=== PATIENT | female | born 1975 | race Caucasian/White ===

== ENCOUNTER 2016-11-02 18:44 | Emergency (ER) | payer OTHER ==
[~2016-11-02] VITALS: Ht 162.6 cm; Wt 102.3 kg
[~2016-11-02 18:44] MED LIST: ASCO250T7 PO; CHOL500014 PO; GABA-502 PO; HYDR-3091 PO; LEVO100T45 PO; MAGN500C4 PO; MELA1TAB16 PO; METO-274 PO; NORT25CA PO; OMEP-113 PO; POLY17PO6 PO; SUMA100T2 PO
[2016-11-02 19:29] VITALS: BP 184/108; PULSE 92; RESP 15; O2SAT 98
[2016-11-02 20:11] LABS: BASOPHILS % (AUTO) 0.5 % (0-3); EOSINOPHILS % (AUTO) 5.2 % (0-5); MONOCYTES % (AUTO) 5.6 % (4-12); Mean Corpuscular Hemoglobin 31.7 pg (27.0-35.0); Mean Corpuscular Volume 94.2 fL (81-100); NEUTROPHILS % (AUTO) 50.5 % (40-74); Platelet Count 293 bil/L (150-400)
--- NOTE | 2016-11-02 21:43 | ED.REPORT ---
HPI-Abd Pain F 40 and Over Date of Service Nov 02, 2016 ED Provider: Shoaib Oh DO Ms. Meyers is a 41 y/o woman with history of recurrent kidney stones who presents today for gross hematuria with associated right sided back cramping that started 9-10 hours ago. It has gradually been getting worse. She also has nausea. She does not have dysuria, urinary frequency, urinary urgency, or abdominal pain. Nothing makes it better or worse. She tried drinking more water but it has not helped. Her last period was 3 weeks ago and she had a uterine ablation so she usually only spots for 1-3 days. She had kidney stones in the past but never had gross hematuria. She has had to have laser lithotripsy in the past for a kidney stone. She had 5 days of gross hematuria prior to [place] at which point she had a renal ultrasound done that showed a renal calculi. She also had a CT KUB done 4 days ago that showed bilateral non- obstructive nephrolithiasis. Nursing Notes Stated Complaint: KIDNEY STONE/ BLOOD IN URINE Chief Complaint: Female Abdominal Pain Nursing Notes Reviewed: Yes Allergies: Coded Allergies: celecoxib (Verified Allergy, Severe, PALPITATIONS, 11/02/16) Uncoded Allergies: TOPRAMAX (Adverse Reaction, Intermediate, SLEEPY, 11/02/16) Scheduled Ascorbic Acid (Vitamin C) 250 Mg Tab.chew 250 MG PO DAILY Cholecalciferol (Vitamin D3) (Vitamin D) 5,000 Unit Tablet 5,000 UNIT PO DAILY Gabapentin (Gabapentin) 300 Mg Capsule 300 MG PO TID Levothyroxine (Levoxyl) 100 Mcg Tablet 100 MCG PO DAILY Magnesium Oxide (Magnesium) 500 Mg Capsule 500 MG PO DAILY Melatonin/Pyridoxine (Melatonin 5 mg Tablet) 1 Each Tablet 1 EACH PO DAILY Metoprolol Succinate ER (Metoprolol Succinate ER) 100 Mg Tab.er.24h 150 MG PO DAILY Nortriptyline (Nortriptyline) 25 Mg Capsule 25 MG PO HS Omeprazole Magnesium (Omeprazole) 20 Mg Capsule.dr 20 MG PO BID Polyethylene Glycol 3350 (Miralax) 17 Gm Powd.pack 17 GM PO DAILY Scheduled PRN Hydrocodone-Acetaminophen 7.5-300 mg (Hydrocodone-Acetaminophen 7.5-300 mg) 1 Each Tablet 1 EACH PO Q4 PRN PRN For Pain Sumatriptan Succinate (Sumatriptan Succinate) 100 Mg Tablet 100 MG PO PRN For Headache General Time Seen by MD: 21:20 Chief Complaint Flank pain right Hx Obtained From: Patient Arrived By: Walk-in Sudden in Onset?: Yes Onset Occurred: 9 - 12 hours ago Symptom Duration: Constant Progression since Onset: Gradually worsening Severity: Current: Moderate Associated with: Reports: Back pain, Chills, Fever (subjective), Hematuria, Nausea, Denies: Dysuria, Urinary frequency, Urinary retention, Vaginal bleeding, Vomiting Status: Negative - ED urine HCG Pertinent Negative: Exacerbated by nothing, Relieved by nothing Context Related History: Reports: Ureterolithiasis Recent Healthcare: Recent testing (CT KUB) Similar Sx Previous: Yes Past Medical History Past Medical History fibromyalgia, recurrent kidney stones, hypothyroidism, HTN Past Surgical History laser lithotripsy for kidney stone Reports: Cholecystectomy Smoking History Never Smoker Social History Alcohol Use: Denies alcohol use Drug Use: Denies drug use Ambulatory Status Independent Review of Systems Basic Review of Systems Eyes: Vision NL, No discharge ENT: Hearing NL, No pain, No nasal congestion, No pharyngeal pain Hematologic: No bruising Endocrine: No cold intolerance, No heat intolerance, No weight gain, No weight loss Skin: No bruising, No rash, No itch Neurologic: NL mental status, No weakness, No numbness Psychiatric: Normal thought content Constitutional: Reports: Chills, Fever GI: Reports: Nausea, Denies: Abdominal pain, Constipation, Diarrhea, Vomiting Female: Reports: Flank pain, Hematuria, Denies: Dysuria, Pelvic pain, Urinary frequency, Urinary urgency, Urination decreased, Urination increased, Vaginal bleeding - abnl Musculoskeletal: Reports: Back pain, Denies: Extremity pain, Joint pain, Lumbar pain, Neck pain, Thoracic pain Physical Exam Vital Signs Vital Signs (First) Date Time Temp Pulse Resp B/P Pulse Ox O2 Delivery O2 Flow Rate FiO2 11/02/16 19:29 36.3 92 15 184/108 98 Room Air Initial VS: Reviewed, Vital signs abnormal Neck: Supple, Non-tender, Full range of motion Lymphatic: No lymphadenopathy Extremities: Vascular intact, Neuro intact, No swelling, No tenderness Skin: Warm, Dry, No cyanosis Neurologic: Alert, Oriented, Nonfocal Psychiatric: Mood/affect normal, Behavior normal, Normal thought content General/Constitutional: Awake, Alert, Well developed Distress / Hydration: Positive: Distress mild Respiratory / Chest: Atraumatic, Breath sounds NL, Breath sounds = bilat, No rales, No rhonchi, No wheezing Cardiovascular: Heart rate NL, Regular rhythm, Heart sounds NL, No gallop, No murmurs, No rubs Abdomen: Atraumatic, Soft, No guarding, No rebound, BS normoactive, No distention, No pulsatile mass Tenderness/Guarding/Rebound: Positive: Tender flank R (positive CVA tenderness) , Tender periumbilical, Tender suprapubic Back: Atraumatic, Inspection NL Interpretation & Diagnostics Interpretation & Diagnostics: CT KUB on 10/29/2016 IMPRESSION: 1. Nonobstructive bilateral nephrolithiasis. No hydronephrosis, ureterolithiasis, hydroureter, or bladder calculi. No findings to explain hematuria. Dictated by: Haydee Fountain M.D. on 10/29/2016 at 13:55 Approved by: Haydee Fountain M.D. on 10/29/2016 at 13:55 Lab Results Interpretation Result Diagram: 11/02/16 2001 11/02/16 2001 Test 11/02/16 20:01 11/02/16 20:30 11/02/16 21:40 White Blood Count 10.6th/mm3 (3.8-10.1) Red Blood Count 4.79mil/mm3 (3.90-5.20) Hemoglobin 15.2g/dL (12.0-15.6) Hematocrit 45.1% (35.0-46.0) Mean Corpuscular Volume 94.2fL (81-100) Mean Corpuscular Hemoglobin 31.7pg (27.0-35.0) Mean Corpuscular Hemoglobin Concent 33.7% (32.0-37.0) Red Cell Distribution Width 13.1% (12.3-15.4) Platelet Count 293bil/L (150-400) Neutrophils (%) (Auto) 50.5% (40-74) Lymphocytes (%) (Auto) 38.0% (14-46) Monocytes (%) (Auto) 5.6% (4-12) Eosinophils (%) (Auto) 5.2% (0-5) Basophils (%) (Auto) 0.5% (0-3) Sodium Level 137mEq/L (134-144) Potassium Level 4.2mEq/L (3.5-5.2) Chloride Level 97mEq/L (97-108) Carbon Dioxide Level 26mmol/L (18-29) Blood Urea Nitrogen 14mg/dL (6-24) Creatinine 0.83mg/dL (0.57-1.00) Estimat Glomerular Filtration Rate 108mL/min (>59) Glucose Level 99mg/dL (60-99) Calcium Level 10.1mg/dL (8.5-10.1) Hold Urine Received (Received) Urine Color Straw (YELLOW) Urine Appearance Clear (CLEAR,HAZY) Urine pH 6.0 (5.0-8.0) Urine Specific [place] 1.005 (1.003-1.035) Urine Protein Negativemg/dL (NEG,TRACE) Urine Glucose (UA) Negativemg/dL (NEGATIVE) Urine Ketones Negativemg/dL (NEGATIVE) Urine Occult Blood Large (NEGATIVE) Urine Nitrite Negative (NEGATIVE) Urine Bilirubin Negative (NEGATIVE) Urine Urobilinogen Normalmg/dL (NORMAL) Urine Leukocyte Esterase Negative (NEGATIVE) Urine RBC 3-10/hpf (0-2) Urine WBC 0-5/hpf (0-5) Urine Epithelial Cells None/hpf (NONE-MOD) Urine Crystals None seen (NONE SEEN) Urine Bacteria Few/hpf (NONE-FEW) Urine Hyaline Casts None/lpf (NONE) Urine Granular Casts None seen (NONE SEEN) Urine Waxy Casts None seen (NONE SEEN) Urine Red Blood Cell Casts None seen (NONE SEEN) Urine White Blood Cell Casts None seen (NONE SEEN) Urine Mucus None seen (None Seen) Urine Trichomonas None seen (NONE SEEN) Urine Yeast None (NONE SEEN) Urinalysis Comment None Urine Culture Reflexed Indicated Re-Eval/Medical Decision Med Decision/Clinical Course 1. Gross and microscopic hematuria -Pt reports gross hematuria and UA has microscopic hematuria as well 2. Bilateral non-obstructive nephrolithiasis -UA is not concerning for UTI or pyelonephritis at this time -Reflex urine culture done and will notify pt of results -Pt received 2 liters of IVF (normal saline) and ceftriaxone 2 grams once while in the ED 3. Elevated blood pressure -Likely secondary to pt's current pain Discharge & Departure Shift Change Sign-Out Laboratory Evaluation: Done, results pending Primary Impression: Hematuria Additional Impression: Nephrolithiasis Ruled Out: UTI (urinary tract infection), Pyelonephritis Disposition: Home Patient Instructions: Nephrolithiasis (ED) Additional Instructions: Take Bactrim twice daily for 7 days. We are going to culture your urine and if it does not grow out bacteria then you may stop this antibiotic. Take yogurt or probiotics while taking antibiotics to prevent diarrhea. Take Percocet 1-2 every 6 hours as needed for pain. Do not drive or drink alcohol or consume acetaminophen while taking the percocet. You can also take Flomax 1 tablet by mouth once daily for 5 days to help pass the kidney stones. Follow up with urology as previously scheduled. Return to care if you develop a fever or your back pain worsens. Follow up with your primary care provider in 1 week. Referrals: Kim Cox MD (PCP) Attending Statement I presented to the history and performed a physical examination. I concur with the resident's note. Hematuria with recent CT scan showing nephrolithiasis. Most likely this is the kidney stones on the move. We will treat her as such. Short course of opiates, plenty of liquids short course of Bactrim while we culture her urine. Flomax for 5 days. Urology follow-up as established for Tuesday. Routine kidney stone and opiate warnings were given. copies to: Kim Cox MD, Marissa L DO Nov 02, 2016 21:43 Shoaib Oh DO Nov 03, 2016 01:59
[2016-11-02] MEDS ORDERED: cefTRIAXone Inj 2,000 MG in IV Premix 1 EACH IV ONE (21:45)
[2016-11-02] MEDS ORDERED: _oxyCODONE/APAP 5-325 mg Tablet PO PRN (21:45)
[2016-11-02] MEDS ORDERED: _Ondansetron ODT 4 mg Tablet PO PRN (21:45)
[2016-11-02] MEDS ORDERED: 0.9% Sodium Chloride 1,000 ML IV SCH (21:45)
[2016-11-02 21:48] LABS: APPEARANCE,URINE CLEAR (CLEAR,HAZY); COLOR,URINE STRAW (YELLOW); UROBILINOGEN,URINE NORMAL (NORMAL)
[2016-11-02 21:51] LABS: OCCULT BLOOD,URINE LARGE (NEGATIVE)
[2016-11-02 22:44] VITALS: BP 145/81; PULSE 86; RESP 22; O2SAT 100
[2016-11-03] MEDS ORDERED: _Trimethoprim-Sulfa 160/800 mg Tablet PO SCH ×2 (08:30)
[2017-01-12] MEDS ORDERED: ZOLP10TA5 PO (10:37)
[2017-01-12] MEDS ORDERED: LEVO112T4 PO (10:37)
[2017-01-12] MEDS ORDERED: NORT25CA PO (10:37)
[2017-01-12] MEDS ORDERED: MELA1TAB16 PO (10:37)
[2017-01-12] MEDS ORDERED: MAGN250T29 PO (10:37)
[2017-01-12] MEDS ORDERED: ACETAMINOPHEN (10:37)
[2017-01-12] MEDS ORDERED: IMI100 PO (10:37)
[2017-01-12] MEDS ORDERED: CHOL500051 PO (10:37)
[2017-01-12] MEDS ORDERED: ASCO250T7 PO (10:37)
[2017-01-12] MEDS ORDERED: GABA-502 PO (10:37)
[2017-01-12] MEDS ORDERED: LISI10TA PO (10:37)
[2017-01-12] MEDS ORDERED: CYCL5TAB PO (10:37)
[2017-01-12] MEDS ORDERED: METO-274 PO (10:37)
[2017-01-12] MEDS ORDERED: HYDR-3825 PO (10:37)
[2017-01-12] MEDS ORDERED: OMEP20CA11 PO (10:37)
== END 2016-11-02 22:59 | disposition home or self-care (01) ==
LOC: SED 18:44
DX: N20.0 Calculus of kidney (principal); I10 Essential (primary) hypertension; Z86.39 Personal history of other endocrine, nutritional and metabolic disease; Z87.442 Personal history of urinary calculi; Z88.8 Allergy status to other drugs, medicaments and biological substances
CPT/HCPCS: 36415; 80048; 81000; 81025; 85025; 87086; 96365; 96375; 99284; J0696; J7030

== ENCOUNTER 2016-12-23 08:55 | Emergency (ER) | payer OTHER ==
[~2016-12-23] VITALS: Ht 162.6 cm; Wt 102.3 kg
[2016-12-23 08:58] VITALS: BP 171/118; PULSE 96; RESP 20; O2SAT 100
--- NOTE | 2016-12-23 09:16 | ED.REPORT ---
HPI-Abd Pain F 40 and Over Date of Service Dec 23, 2016 ED Provider: Willy Masterson MD This is a 41 year old female with a history of hypothyroidism, HTN, kidney stones, and fibromyalgia presenting to the emergency department complaining of R flank pain that began yesterday. She developed flank pain and hematuria yesterday. Pain is progressively worsening and associated with chills, nausea, and malaise. Took Flomax yesterday. She has a scheduled lithotripsy 01/13/2017. Denies fever, diarrhea, constipation, headache, vomiting. Nursing Notes Stated Complaint: POSS KIDNEY STONES Chief Complaint: Female Abdominal Pain Nursing Notes Reviewed: Yes Allergies: Coded Allergies: celecoxib (Verified Allergy, Severe, PALPITATIONS, 12/23/16) Uncoded Allergies: TOPRAMAX (Adverse Reaction, Intermediate, SLEEPY, 11/02/16) Scheduled Ascorbic Acid (Vitamin C) 250 Mg Tab.chew 250 MG PO DAILY Cholecalciferol (Vitamin D3) (Vitamin D) 5,000 Unit Tablet 5,000 UNIT PO DAILY Ciprofloxacin (Ciprofloxacin) 500 Mg Tablet 500 MG PO BID Gabapentin (Gabapentin) 300 Mg Capsule 300 MG PO TID Levothyroxine (Levoxyl) 100 Mcg Tablet 100 MCG PO DAILY Magnesium Oxide (Magnesium) 500 Mg Capsule 500 MG PO DAILY Melatonin/Pyridoxine (Melatonin 5 mg Tablet) 1 Each Tablet 1 EACH PO DAILY Metoprolol Succinate ER (Metoprolol Succinate ER) 100 Mg Tab.er.24h 150 MG PO DAILY Nortriptyline (Nortriptyline) 25 Mg Capsule 25 MG PO HS Omeprazole Magnesium (Omeprazole) 20 Mg Capsule.dr 20 MG PO BID Polyethylene Glycol 3350 (Miralax) 17 Gm Powd.pack 17 GM PO DAILY Scheduled PRN Hydrocodone-Acetaminophen 7.5-300 mg (Hydrocodone-Acetaminophen 7.5-300 mg) 1 Each Tablet 1 EACH PO Q4 PRN PRN For Pain Sumatriptan Succinate (Sumatriptan Succinate) 100 Mg Tablet 100 MG PO PRN For Headache General Time Seen by MD: 09:15 Chief Complaint Flank pain right Hx Obtained From: Patient Arrived By: Walk-in Sudden in Onset?: Yes Onset Occurred: Yesterday Symptom Duration: Since onset Severity: Current: Moderate Pertinent Negative: Pt denies other symptoms Recent Healthcare: No recent doctor visit, No recent hospitalization Similar Sx Previous: No Past Medical History Past Medical History fibromyalgia, recurrent kidney stones, hypothyroidism, HTN Past Surgical History laser lithotripsy for kidney stone Reports: Cholecystectomy Smoking History Never Smoker Social History Alcohol Use: Denies alcohol use Drug Use: Denies drug use Ambulatory Status Independent Review of Systems Constitutional: Denies: Chills, Fever GI: Reports: Nausea, Denies: Abdominal pain, Constipation, Diarrhea, Vomiting Female: Reports: Dysuria, Flank pain, Hematuria Complete sys rev & neg: except as marked. Physical Exam Vital Signs Vital Signs (First) Date Time Temp Pulse Resp B/P Pulse Ox O2 Delivery O2 Flow Rate FiO2 12/23/16 08:58 36.2 96 20 171/118 100 12/23/16 09:20 Room Air Initial VS: Reviewed Head / Eyes: Atraumatic, Normocephalic, PERRL ENT: Mucous membranes moist, Conjunctiva normal, No scleral icterus Neck: Supple, Non-tender, Full range of motion Extremities: Vascular intact, Neuro intact, No swelling, No tenderness Skin: Warm, Dry, No cyanosis Neurologic: Alert, Oriented, Nonfocal Psychiatric: Mood/affect normal, Behavior normal, Normal thought content General/Constitutional: Awake, Alert Respiratory / Chest: Breath sounds NL, Breath sounds = bilat, No respiratory distress, No rales, No rhonchi, No wheezing, No stridor Cardiovascular: Heart rate NL, Regular rhythm, Heart sounds NL, Peripheral circulation NL Abdomen: Soft, Non-tender, McBurney's non-tender, No guarding, No rebound, BS normoactive, No distention, No hernia, No palpable mass, No pulsatile mass Back: No midline vertebral tend R CVA tenderness Interpretation & Diagnostics US RETROPERITONEUM IMPRESSION: 1. Multiple nonobstructing right renal stones and there is mild right hydronephrosis. 2. Left hemipelvic ptotic kidney. Dictated by: Fer Pacheco RRA Interpreted: Verenice Carrizales MD on 12/23/2016 at 14:27 Transcribed by: TAN on 12/23/2016 at 14:31 Lab Results Interpretation Result Diagram: 12/23/16 1032 12/23/16 1032 Test 12/23/16 10:32 12/23/16 11:01 White Blood Count 6.9th/mm3 (3.8-10.1) Red Blood Count 4.72mil/mm3 (3.90-5.20) Hemoglobin 15.2g/dL (12.0-15.6) Hematocrit 45.0% (35.0-46.0) Mean Corpuscular Volume 95.3fL (81-100) Mean Corpuscular Hemoglobin 32.2pg (27.0-35.0) Mean Corpuscular Hemoglobin Concent 33.8% (32.0-37.0) Red Cell Distribution Width 13.1% (12.3-15.4) Platelet Count 252bil/L (150-400) Neutrophils (%) (Auto) 47.1% (40-74) Lymphocytes (%) (Auto) 41.6% (14-46) Monocytes (%) (Auto) 6.6% (4-12) Eosinophils (%) (Auto) 4.2% (0-5) Basophils (%) (Auto) 0.4% (0-3) Sodium Level 136mEq/L (134-144) Potassium Level 4.6mEq/L (3.5-5.2) Chloride Level 100mEq/L (97-108) Carbon Dioxide Level 25mmol/L (18-29) Blood Urea Nitrogen 12mg/dL (6-24) Creatinine 0.84mg/dL (0.57-1.00) Estimat Glomerular Filtration Rate 107mL/min (>59) Glucose Level 109mg/dL (60-99) Calcium Level 9.7mg/dL (8.5-10.1) Magnesium Level 2.1mg/dL (1.6-2.6) Total Bilirubin 0.3mg/dL (0.0-1.2) Aspartate Amino Transf (AST/SGOT) 32U/L (0-50) Alanine Aminotransferase (ALT/SGPT) 28U/L (0-32) Alkaline Phosphatase 67U/L (25-150) Total Protein 7.3g/dL (6.4-8.4) Albumin 4.3g/dL (3.4-5.0) Lipase 13U/L (13-60) Hold [place] Top Tube Received (Received) Urine Color Straw (YELLOW) Urine Appearance Hazy (CLEAR,HAZY) Urine pH 6.0 (5.0-8.0) Urine Specific [place] 1.005 (1.003-1.035) Urine Protein Negativemg/dL (NEG,TRACE) Urine Glucose (UA) Negativemg/dL (NEGATIVE) Urine Ketones Negativemg/dL (NEGATIVE) Urine Occult Blood Large (NEGATIVE) Urine Nitrite Negative (NEGATIVE) Urine Bilirubin Negative (NEGATIVE) Urine Urobilinogen Normalmg/dL (NORMAL) Urine Leukocyte Esterase Moderate (NEGATIVE) Urine RBC 11-50/hpf (0-2) Urine WBC 11-50/hpf (0-5) Urine Epithelial Cells Occasional/hpf (NONE-MOD) Urine Crystals None seen (NONE SEEN) Urine Bacteria Moderate/hpf (NONE-FEW) Urine Hyaline Casts None/lpf (NONE) Urine Granular Casts None seen (NONE SEEN) Urine Waxy Casts None seen (NONE SEEN) Urine Red Blood Cell Casts None seen (NONE SEEN) Urine White Blood Cell Casts None seen (NONE SEEN) Urine Mucus None seen (None Seen) Urine Trichomonas None seen (NONE SEEN) Urine Yeast Moderate (NONE SEEN) Urinalysis Comment None Urine Culture Reflexed Indicated Re-Eval/Medical Decision Med Decision/Clinical Course 41-year-old female history of kidney stones who is awaiting lithotripsy presenting with right CVA pain. Right CVA tenderness. Afebrile. Her urine positive for white blood cells. Renal ultrasound with right-sided hydronephrosis. Her vitals are stable and she is afebrile. Discussed with urology. Okay to discharge on oral antibiotics with immediate return precautions if she develops any fevers or other systemic symptoms of illness. 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 Give her one dose of Rocephin here. We will discharge on ciprofloxacin. Continue Flomax. Plan for lithotripsy in 3 weeks as scheduled. Re-Evaluation/Progress : Time of Eval: 11:42 Re-Evaluation/Progress Note: Discussed lab and imaging results and plan for d/c, all questions addressed. Consultation : Referral / Consult Name: Verenice Bravo MD Consulted With: Urology Call Returned at: 11:42 Supply Room Clerk: Agrees with eval, Agrees with plan Counseled Regarding: Diagnosis, Lab results, Need for follow-up, When/why to return to ED Discharge & Departure Primary Impression: Nephrolithiasis Additional Impression: UTI (urinary tract infection) Urinary tract infection type: site unspecified Hematuria presence: with hematuria Qualified Code: N39.0 - Urinary tract infection, site not specified Disposition: Home Discharge Condition All VS Reviewed: Yes Condition: Stable Patient Instructions: Nephrolithiasis (ED) Additional Instructions: Your workup was reassuring today. Take ciprofloxacin as prescribed. Follow up with urology as scheduled, call immediately if you develop fevers. Return to the emergency department for any new or worsening symptom Referrals: Kim Cox MD (PCP) Scribe Attestation Portions of this note were transcribed by Nickie Padilla. I, Dr. Masterson personally performed the history, physical exam and medical decision-making; I reviewed and confirmed the accuracy of the information in the transcribed note. Signed by: jacob Pineda. 12/23/2016, 15:00. Willy Masterson MD Dec 23, 2016 09:16 NICKIE PADILLA Dec 23, 2016 09:22
[2016-12-23 09:20] VITALS: BP 151/84; PULSE 88; RESP 18; O2SAT 99
[2016-12-23] MEDS ORDERED: 0.9% Sodium Chloride 1,000 ML IV ONE (09:23)
[2016-12-23] MEDS ORDERED: Ondansetron 2 mg/mL 2 mL Inj IVPUSH PRN (09:25)
[2016-12-23 10:44] LABS: BASOPHILS % (AUTO) 0.4 % (0-3); EOSINOPHILS % (AUTO) 4.2 % (0-5); MONOCYTES % (AUTO) 6.6 % (4-12); Mean Corpuscular Hemoglobin 32.2 pg (27.0-35.0); Mean Corpuscular Volume 95.3 fL (81-100); NEUTROPHILS % (AUTO) 47.1 % (40-74); Platelet Count 252 bil/L (150-400)
[2016-12-23 11:20] LABS: Magnesium 2.1 mg/dL (1.6-2.6)
[2016-12-23 11:28] LABS: APPEARANCE,URINE HAZY (CLEAR,HAZY); COLOR,URINE STRAW (YELLOW); OCCULT BLOOD,URINE LARGE (NEGATIVE); UROBILINOGEN,URINE NORMAL (NORMAL)
[2016-12-23 11:38] LABS: YEAST,URINE MODERATE (NONE SEEN)
[2016-12-23] MEDS ORDERED: cefTRIAXone Inj 2,000 MG in Dextrose 5% Minibag Plus 50 ML IV ONE (11:45)
[2016-12-23 11:52] VITALS: BP 146/76; PULSE 72; RESP 20; O2SAT 100
[2016-12-23] MEDS ORDERED: CIPR-198 PO (11:53)
[2016-12-23 12:23] VITALS: BP 146/76; PULSE 72; RESP 20; O2SAT 100
--- NOTE | 2016-12-23 14:31 | DRSVH ---
PROCEDURE: US RENAL SONOGRAM INDICATIONS: R CVA tenderness h/o kidney stones TECHNIQUE: Real-time scanning was performed of the kidneys and bladder, with image documentation. COMPARISON: [facility], CT, CT KUB, 10/29/2016, 13:34. FINDINGS: Kidneys: Right kidney is normal measuring 13.0 cm in length and are multiple nonobstructing right re nal stones. There is mild right hydronephrosis. Left kidney is positioned within the pelvis is with in previous CT scan and no hydronephrosis is present. Bladder: Pre-void bladder volume is 374 mL. Post-void residual is 10 mL. Pre-void images demonstra te no intraluminal masses or stones. On pre-void images, bilateral ureteral jets are noted with colo r Doppler interrogation. (Of note, ureteral jets may not be detectable in up to 25% of cases due to insufficient differences in specific gravity between ureteral and bladder urine). Miscellaneous: No free pelvic fluid. IMPRESSION: 1. Multiple nonobstructing right renal stones and there is mild right hydronephrosis. 2. Left hemipelvic ptotic kidney. Dictated by: Fer Pacheco [facility] Interpreted: Verenice Carrizales MD on 12/23/2016 at 14:27 Transcribed by: TAN on 12/23/2016 at 14:31 Approved by: Verenice Carrizales MD, PhD on 12/23/2016 at 16:58
[2017-01-12] MEDS ORDERED: MELA1TAB16 PO (10:37)
[2017-01-12] MEDS ORDERED: OMEP20CA11 PO (10:37)
[2017-01-12] MEDS ORDERED: ZOLP10TA5 PO (10:37)
[2017-01-12] MEDS ORDERED: IMI100 PO (10:37)
[2017-01-12] MEDS ORDERED: CHOL500051 PO (10:37)
[2017-01-12] MEDS ORDERED: GABA-502 PO (10:37)
[2017-01-12] MEDS ORDERED: CYCL5TAB PO (10:37)
[2017-01-12] MEDS ORDERED: MAGN250T29 PO (10:37)
[2017-01-12] MEDS ORDERED: NORT25CA PO (10:37)
[2017-01-12] MEDS ORDERED: METO-274 PO (10:37)
[2017-01-12] MEDS ORDERED: LEVO112T4 PO (10:37)
[2017-01-12] MEDS ORDERED: HYDR-3825 PO (10:37)
[2017-01-12] MEDS ORDERED: ACETAMINOPHEN (10:37)
[2017-01-12] MEDS ORDERED: LISI10TA PO (10:37)
[2017-01-12] MEDS ORDERED: ASCO250T7 PO (10:37)
== END 2016-12-23 11:45 | disposition home or self-care (01) ==
LOC: SED 08:55
DX: N20.0 Calculus of kidney (principal); N39.0 Urinary tract infection, site not specified; E03.9 Hypothyroidism, unspecified; I10 Essential (primary) hypertension; Z88.6 Allergy status to analgesic agent; Z88.8 Allergy status to other drugs, medicaments and biological substances
CPT/HCPCS: 36415; 76770; 80053; 81000; 81025; 83690; 83735; 85025; 87086; 87088; 96361; 96365; 96375; 99285; J0696; J2405; J7030

== ENCOUNTER 2017-01-13 05:42 | Day surgery (SDC) | payer OTHER ==
[~2017-01-13] VITALS: Ht 162.6 cm; Wt 100.8 kg
[2017-01-13] VITALS (10 sets, daily range): BP systolic 107–139; BP diastolic 57–87; PULSE 80–94; RESP 13–19; O2SAT 93–97
[~2017-01-13 05:42] MED LIST changes: +ACETAMINOPHEN; -CHOL500014 PO; +CHOL500051 PO; +CYCL5TAB PO; -HYDR-3091 PO; +HYDR-3825 PO; +IMI100 PO; -LEVO100T45 PO; +LEVO112T4 PO; +LISI10TA PO; +MAGN250T29 PO; -MAGN500C4 PO; -OMEP-113 PO; +OMEP20CA11 PO; -POLY17PO6 PO; -SUMA100T2 PO; +ZOLP10TA5 PO
[2017-01-13] MEDS ORDERED: fentaNYL-PF 50 mCg/mL 2 mL Inj ONE (05:43)
[2017-01-13] MEDS ORDERED: Glycopyrrolate 0.2 MG/ML 1mL Inj ONE (05:43)
[2017-01-13] MEDS ORDERED: Dexamethasone 4 mg/mL Inj ONE (05:43)
[2017-01-13] MEDS ORDERED: EPHEDrine/NS 5 mg/mL 5 mL Syringe ONE (05:43)
[2017-01-13] MEDS ORDERED: Phenylephrine/NS 100 mCg/mL 10 mL Syringe IVPUSH ONE (05:43)
[2017-01-13] MEDS ORDERED: Propofol 10,000 mCg/mL 20 mL Inj ONE (05:43)
[2017-01-13] MEDS ORDERED: Lidocaine-Prilo 2.5-2.5% 30 Gm Cream TOPICAL ONE (06:00)
[2017-01-13] MEDS: Lactated Ringer's 1,000 ML IV SCH ×3 (06:25→09:14)
--- NOTE | 2017-01-13 07:08 | PCM.HPANE ---
Patient Data Surgeon Admitting Provider: Attending Provider:Romi Laguerre MD Primary Care Physician:Kim Cox MD Other Provider:Fernanda Orozcoingham Anesthesia Reason for Visit Right Kidney Stone Ht/WT & BMI Height (Feet): 5 Height (Inches): 4 Weight (Kilograms): 100.8 Body Mass Index 37.00 Allergies Coded Allergies: celecoxib (Verified Allergy, Severe, PALPITATIONS, 12/23/16) Uncoded Allergies: TOPRAMAX (Adverse Reaction, Intermediate, SLEEPY, 11/02/16) Past Anesthesia History Anesthesia History: Positive for:: Anesthesia Reactions (hx of nausea/vomiting) , Denies:: Abnormal Airway, Difficult Intubation, Fam Anesthesia Reaction, Fam Malignant Hypertherm, Malignant Hyperthermia Diabetes History Hx Diabetes?: No MRSA MRSA: No Medications Hypertension Medication: Yes Home Meds Incl Beta Ida: Yes (METOPROLOL) Date Beta Ida Taken: Jan 13, 2017 Time Beta Ida Taken: 514 Reported Medications Zolpidem 10 Mg Tablet5-10 Mg PO HS PRN For Insomnia Ref 0 01/12/17 Cholecalciferol (Vitamin D3) (Vitamin D)5,000 Unit Capsule5,000 Unit PO DAILY 01/12/17 Ascorbic Acid (Vitamin C)250 Mg Tab.vhyp572 Mg PO DAILY #30 TABLET Ref 0 01/12/17 [tylenol xtr st] No Conflict Check1,000 Mg Q6H PRN For Pain 01/12/17 Sumatriptan (Imitrex)100 Mg Hmruox342 Mg PO PRN migraines MRx1/NTE 200mg/24hrs 01/12/17 Omeprazole 20 Mg Capsule.dr20 Mg PO DAILY Ref 0 01/12/17 Nortriptyline 25 Mg Hcueies26 Mg PO HS PRN Insomnia 01/12/17 Metoprolol Succinate ER 100 Mg Tab.er.48s748 Mg PO BID Ref 0 01/12/17 Melatonin/Pyridoxine (Melatonin 5 mg Tablet)1 Each Tablet1 Each PO HS PRN Insomnia 01/12/17 Magnesium Oxide (Magnesium)250 Mg Chzqav246 Mg PO DAILY 01/12/17 Lisinopril 10 Mg Csreud58 Mg PO DAILY 30 Days Ref 0 HAS NOT STARTED 01/12/17 Levothyroxine 112 Mcg Vsertf984 Mcg PO DAILY For Thyroid Replacement Ref 0 01/12/17 Hydrocodone-Acetaminophen 7.5-325 mg 1 Each Tablet1-2 Tablet PO Q6H PRN For Pain Ref 0 01/12/17 Gabapentin 300 Mg Nhhivoi295 Mg PO 2-3xdaily Ref 0 01/12/17 Cyclobenzaprine 5 Mg Tablet5 Mg PO TID PRN Spasm 01/12/17 Discontinued Reported Medications Cholecalciferol (Vitamin D3) (Vitamin D)5,000 Unit Tablet5,000 Unit PO DAILY 03/27/15 Ascorbic Acid (Vitamin C)250 Mg Tab.boap146 Mg PO DAILY #30 TABLET Ref 0 03/27/15 Sumatriptan Succinate 100 Mg Ilvnnl719 Mg PO PRN For Headache 03/27/15 Omeprazole Magnesium (Omeprazole)20 Mg Capsule.dr20 Mg PO BID 30 Days Ref 0 03/27/15 Nortriptyline 25 Mg Qnwdrzx70 Mg PO HS 30 Days 03/27/15 Polyethylene Glycol 3350 (Miralax)17 Gm Powd.pack17 Gm PO DAILY 03/27/15 Metoprolol Succinate ER 100 Mg Tab.er.95r115 Mg PO DAILY 30 Days Ref 0 03/27/15 Melatonin/Pyridoxine (Melatonin 5 mg Tablet)1 Each Tablet1 Each PO DAILY 03/27/15 Magnesium Oxide (Magnesium)500 Mg Judffbo016 Mg PO DAILY 03/27/15 Levothyroxine (Levoxyl)100 Mcg Crmazf028 Mcg PO DAILY 30 Days Ref 0 03/27/15 Hydrocodone-Acetaminophen 7.5-300 mg 1 Each Tablet1 Each PO Q4 PRN For Pain Ref 0 03/27/15 Gabapentin 300 Mg Bviszms243 Mg PO TID 30 Days Ref 0 03/27/15 Discontinued Scripts Ciprofloxacin 500 Mg Cghgod462 Mg PO BID 14 Days Prov:Willy Masterson MD 12/23/16 History History of ENT Problems?: No HEENT History: Positive for:: Dysphagia Denies:: Abnormal Airway Difficult Intubation Hearing Problem Hx of Heart Problems?: Yes Cardiovascular History: Positive for:: Heart Murmur (echo done 12/2015- ef 60- 65%) Hypertension Denies:: AICD Congestive Heart Failure Pacemaker Valvular Heart Disease Hx of Respiratory Problem?: No Respiratory History: Denies:: Asthma COPD Emphysema Oxygen Administration Tuberculosis Use of C-PAP Machine Hx Neurologic Problems?: Yes Neurological History: Positive for:: Headaches Denies:: CVA Multiple Sclerosis Parkinson's Disease Seizures Hx of GI Problems?: Yes Gastrointestinal History: Positive for:: Diverticulitis Gall Bladder Disease (removed) Gastroesphageal Reflux Heartburn Hiatal Hernia Denies:: Rectal Bleeding Hx of Problems?: Yes Genitourinary History: Positive for:: Kidney Stones (right side current admission problem) Denies:: Urinary Tract Infection (past hx of-) Female Hx: Positive for:: Endometriosis Denies:: Currently Problems with Breasts? Skin History: Denies:: History Skin Disorders? Pressure Ulcers Hx Musculoskeletal Problems?: Yes Musculoskeletal History: Positive for:: Fibromyalgia Musculoskeletal Trauma (hx of knee scope) Hx of Psycho/Social Problems?: No Hx Surgeries?: Yes (uterine ablation, myomectomy, tonsil, , L-knee, gallbladder) Hx Any Other Health Problems?: Yes Other History: Positive for:: Hospitalization Thyroid Disease Denies:: Cancer Endocrine Disease History Blood Transfusions: Denies:: Blood Transfuse Reaction Blood Transfusions Hx Diabetes: No Hx Alcohol Use: NoHx Substance Use: No Smoking Status: Never Smoker Have You Smoked inLast 12 mo: No Stop/Bang S-Snoring: Do You Snore Loudly: No T-Tired: feel tired, fatigued: No O-Obsered: Observed not breath: No P-Blood Pressure: treated: Yes B- Body Mass Index > 35 kg/m2: Yes A- Age over 50: No N- Neck Large Circumference: No G- Gender Male: No JOSE Total Score: 2 Risk Assessment Category Category 1A: Patient has history of documented sleep apnea, and HAS NOT received any narcotic, sedative or anesthesia administration during this stay. Category 1B: Patient has history of documented sleep apnea, and HAS received any narcotic , sedative or anesthesia administration during this stay Category 2: Patient has SUSPECTED Obstructive Sleep Apnea, and HAS received any narcotic , sedative or anesthesia administration during this stay. Category 3: Patient has SUSPECTED Obstructive Sleep Apnea and HAS NOT received narcotic, sedative or anesthesia administration during this stay. Category 4: Outpatient in Procedural Areas with known sleep apnea or who screen positive for High Risk via the STOP/BANG questionnaire. Exam Exam Vital Signs Vital Signs Date Time Temp Pulse Resp B/P Pulse Ox O2 Delivery O2 Flow Rate FiO2 01/13/17 06:25 35.5 80 18 139/87 95 Room Air General Appearance: Alert, Oriented X3, Cooperative HEENT/AIRWAY: MP 2, Neck Movement (THICK< FROM), Mouth Opening (WNL) Lungs: Clear to Auscultation Heart: Exam Unremarkable Meds/Labs/Diagnostics Admission Meds Current Medications Lactated Ringer's (Lr) 1,000 ml @ 120 mls/hr Q8H20M IV Last administered on t 06:25; Start 01/13/17 at 05:00; Stop 01/13/17 at 13:19 Plan Impression Patient chart reviewed, patient interviewed and anesthestic plan with risks, benefits, and alternatives discussed, and informed consent obtained. NPO Status: 01/13/17 SIP WATER ASA Physical Status: ASA2 Mod Systemic Disease Anesthetic Plan: GA Bene/Risks/Altern/Consents: Yes HP Complete Prior to Induction: Yes Other Pt successfully underwent GA last ESWL with LMA Ismael Clifton MD Jan 13, 2017 07:08
[2017-01-13] MEDS ORDERED: CeFAZolin Inj 2 gm / 50mL D5W IV ONE (07:15)
[2017-01-13] MEDS ORDERED: Belladonna Alk-Opium 60 mg Rectal Suppository RECTAL ONE ×2 (07:45→07:48)
[2017-01-13] MEDS ORDERED: Lactated Ringer's 1,000 ML IV SCH (08:28)
[2017-01-13] MEDS ORDERED: Lactated Ringer's 500 ML IV PRN (08:28)
[2017-01-13] MEDS ORDERED: Labetalol 5 mg/mL 4 mL Inj IV PRN (08:30)
[2017-01-13] MEDS ORDERED: HYDROmorphone 1 mg/mL Inj IVPUSH PRN (08:30)
[2017-01-13] MEDS ORDERED: fentaNYL-PF 50 mCg/mL 2 mL Inj IVPUSH PRN (08:30)
[2017-01-13] MEDS ORDERED: Ondansetron 2 mg/mL 2 mL Inj IVPUSH PRN (08:30)
[2017-01-13] MEDS ORDERED: Atropine 0.4 mg/mL Inj IVPUSH PRN (08:30)
[2017-01-13] MEDS ORDERED: hydrALAZINE 20 mg/mL Inj IVPUSH PRN (08:30)
[2017-01-13] MEDS ORDERED: Phenylephrine 10,000 mCg/mL Inj IVPUSH PRN (08:30)
[2017-01-13] MEDS ORDERED: EPHEDrine Sulfate 50 mg/mL Inj IVPUSH PRN (08:30)
[2017-01-13] MEDS ORDERED: Dexamethasone 4 mg/mL Inj IVPUSH PRN (08:30)
[2017-01-13] MEDS ORDERED: HYDROcodone-APAP 5-325 mg Tablet PO PRN (08:45)
[2017-01-13] MEDS ORDERED: Ondansetron 8 mg ODT Tablet PO PRN (08:45)
--- NOTE | 2017-01-13 10:29 | PCM.ANEP1 ---
Post Anesthesia Phase 1 PACU Phase 1 Assessment Vital Signs Vital Signs Date Time Temp Pulse Resp B/P Pulse Ox O2 Delivery O2 Flow Rate FiO2 01/13/17 09:31 85 16 123/76 95 Room Air 01/13/17 09:15 36.4 87 18 121/71 96 Room Air 01/13/17 09:10 90 19 107/61 94 Room Air 01/13/17 09:05 90 19 113/67 95 Room Air 01/13/17 09:00 36.3 92 19 115/68 93 Room Air 01/13/17 08:55 91 19 113/69 95 Room Air 01/13/17 08:50 94 19 117/66 96 Room Air 01/13/17 08:45 86 18 109/59 97 Room Air 01/13/17 08:43 36.5 91 13 111/57 97 Room Air 01/13/17 06:25 35.5 80 18 139/87 95 Room Air Anesthetic Administered: GA Level of Alertness: Awake, talking RIBEIRO's with Equal Strength: Yes Pain: No Nausea or Vomiting: No Oxygen Delivery: Room Air Lungs: Clear to Auscultation Ismael Clifton MD Jan 13, 2017 10:29
--- NOTE | 2017-01-13 10:44 | DRSVH ---
PROCEDURE: X-RAY KUB ([id number]) INDICATIONS: RIGHT KIDNEY STONE TECHNIQUE: One view of the abdomen acquired. COMPARISON: [facility], CR, XR KUB, 12/01/2016, 14:44. FINDINGS: Surgical changes and devices: None. Bowel: Bowel gas pattern is normal. Soft tissues: Multiple small bilateral renal calcifications present similar prior examination larger than the right measuring roughly 5 mm. There is a new roughly 7 mm calcification projected over the right hemipelvis. Bones: No suspicious bony lesions. IMPRESSION: Multiple renal stones and right hemipelvic calcification which is new from prior KUB whic h could represent a ureteral stone. Recommend clinical correlation and if indicated CT could be perfo rmed. Dictated by: Fer GARCIAA Interpreted: Verenice Carrizales MD on 01/13/2017 at 10:43 Transcribed by: TAN on 01/13/2017 at 10:44 Approved by: Verenice Carrizales MD, PhD on 01/13/2017 at 16:51
--- NOTE | 2017-01-13 14:54 | PCM.ANEP2 ---
Post Anesthesia Evaluation ASA/CMS Post Anesthesia VS in Patient's Normal Range?: Yes Resp Stable; Airway Patent?: Yes CV Function & Hydration Stable: Yes Mental Status Recovered?: Yes Pain control Satisfactory?: Yes N/V Control Satisfactory?: Yes Ismael Clifton MD Jan 13, 2017 14:54
--- NOTE | 2017-01-13 22:46 | OP ---
[address] [address] OPERATIVE REPORT PATIENT: LAI GONZALEZ : 1975 MR#: [id number] ADMIT: 01/13/2017 JOB ID: [id number] DATE OF SURGERY: 01/13/2017 PROCEDURE NAME: Right-sided extracorporeal shockwave lithotripsy and right-sided double-J stent placement. SURGEON: Romi Laguerre MD. ANESTHESIA: General. PREOPERATIVE DIAGNOSIS(ES): Right-sided renal calculi, three. POSTOPERATIVE DIAGNOSIS(ES): Right-sided renal calculi, three. INDICATIONS: Patient is a 41-year-old woman with a longstanding history of nephrolithiasis with multiple prior treatments including shockwave lithotripsy, electing shockwave lithotripsy as treatment of her several right renal calculi with stent placement. Patient has had stents in the past and done well with it. Does not tolerate pain well and does not tolerate stone passage very well. PROCEDURE IN DETAIL: After appropriate informed consent was obtained, patient was brought to the operating room. She received IV Ancef prior to onset of procedure. SCDs were placed. Adequate general anesthesia induced. She was initially carefully placed in dorsal lithotomy position. All pressure points carefully padded. Cleaned, prepped, and draped in the usual sterile fashion. Rigid scope was introduced in the patient's bladder. Right ureteral orifice was noted to be grossly normal in appearance. Right ureteral orifice was identified and cannulated with an open-ended catheter. We advanced a hydrophilic tipped wire under fluoroscopic guidance into good position in the renal pelvis. We then removed the ureteral catheter and advanced a 6-Kosovan x 26 cm double-J stent over the wire under fluoroscopic and direct visual guidance into good position with a curl in the renal pelvis and a curl in the patient's bladder. No string was left on. The scope was then withdrawn. Patient's bladder was drained and she was replaced in the supine position and positioned for shock wave lithotripsy. The lithotripter head was applied and she was treated with a pause after the first 200 shocks with escalating power to power level five. Ultimately, 1000 shocks were placed directed onto the inferior most stone, 1000 to the superior stone, and 500 to the smaller mid pole mid region stone which was also visible. Break-up appeared to be good. The rate was 60 throughout until the last 500 shocks on the cephalad stone where it was raised to 80 as the break up appeared to be pretty good. The patient tolerated the procedure well. There was minimal skin erythema. She was awakened and taken in stable condition to the postanesthesia care unit.
== END 2017-01-13 23:59 | disposition home or self-care (01) ==
LOC: SAS 05:42
PROVIDERS: ATTEND Urology
DX: N20.0 Calculus of kidney (principal); I10 Essential (primary) hypertension; E03.9 Hypothyroidism, unspecified; M79.7 Fibromyalgia; K21.9 Gastro-esophageal reflux disease without esophagitis; G43.909 Migraine, unspecified, not intractable, without status migrainosus; R73.09 Other abnormal glucose; K76.0 Fatty (change of) liver, not elsewhere classified; E66.9 Obesity, unspecified; Z68.38 Body mass index [BMI] 38.0-38.9, adult
CPT/HCPCS: 50590; 52332; 74000; C2617; J1100; J2250; J2370; J3010; J7120